=== PATIENT | female | born 1975 | race African-American/Black ===

== ENCOUNTER 2019-01-10 12:46 | Inpatient (IN) | payer BC ==
[~2019-01-10] VITALS: Ht 165.1 cm; Wt 103.0 kg
[2019-01-10] MEDS ORDERED: ASPIRIN CHEWABLE 81 MG TABLET. PO ONE (13:15)
[2019-01-10] MEDS ORDERED: LABETALOL 20 MG/4 ML DISP.SYRIN. IVP ONE ×2 (13:15→14:30)
--- NOTE | 2019-01-10 13:16 | EKG ---
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
[2019-01-10 13:23] LABS: BASO # 0.1 x10^3/uL (0.0-0.2); BASO % 2 % (0-3); EOS # 0.1 x10^3/uL (0.0-0.7); EOS % 2 % (0-3); HEMOGLOBIN 12.1 g/dL (12.0-15.5); LYMPH # 2.5 x10^3/uL (1.0-4.8); LYMPH % 44 % (24-48); MEAN CORPUSCULAR HEMOGLOBIN 29 pg (25-35); MEAN CORPUSCULAR HGB CONC 34 g/dL (31-37); MEAN CORPUSCULAR VOLUME 88 fL (79-100); MONO # 0.4 x10^3/uL (0.0-1.1); MONO % 7 % (0-9); NEUT # 2.6 x10^3uL (1.8-7.7); NEUT % 46 % (31-73); PLATELET COUNT 304 x10^3/uL (140-400); RED BLOOD COUNT 4.11 x10^6/uL (3.50-5.40); RED CELL DISTRIBUTION WIDTH 12.9 % (11.5-14.5); WHITE BLOOD COUNT 5.7 x10^3/uL (4.0-11.0)
[2019-01-10 13:35] LABS: CREATININE 0.7 mg/dL (0.6-1.0); POTASSIUM 3.9 mmol/L (3.5-5.1)
[2019-01-10 13:40] LABS: PROTHROMBIN TIME PATIENT 12.3 SEC (11.7-14.0)
[2019-01-10 13:43] LABS: ALBUMIN 3.8 g/dL (3.4-5.0); ALBUMIN/GLOBULIN RATIO 0.9 (1.0-1.7); MAGNESIUM 1.7 mg/dL (1.8-2.4); TOTAL BILIRUBIN 0.3 mg/dL (0.2-1.0); TOTAL PROTEIN 8.2 g/dL (6.4-8.2)
--- NOTE | 2019-01-10 13:59 | RAD ---
Portable chest, 01/10/2019: HISTORY: Chest pain The heart size and pulmonary vascularity are normal. No pulmonary infiltrate is seen. There is no evidence of pleural fluid. IMPRESSION: No acute cardiopulmonary abnormality is detected. Electronically signed by: Romeo Johnson MD (01/10/2019 1:56 PM) [facility]
--- NOTE | 2019-01-10 14:06 | PHYS DOC ---
Past Medical History Past Medical History: Diabetes-Type II, Hypertension Past Surgical History: Alcohol Use: Occasionally Drug Use: None Adult General Chief Complaint Chief Complaint: CHEST PAIN HPI HPI Patient is a 43 year old female who presents with complaining of chest pain. Review of Systems Review of Systems Constitutional: Denies fever or chills [] Eyes: Denies change in visual acuity, redness, or eye pain [] HENT: Denies nasal congestion or sore throat [] Respiratory: Denies cough or shortness of breath [] Cardiovascular: No additional information not addressed in HPI [] GI: Denies abdominal pain, nausea, vomiting, bloody stools or diarrhea [] : Denies dysuria or hematuria [] Musculoskeletal: Denies back pain or joint pain [] Integument: Denies rash or skin lesions [] Neurologic: Denies headache, focal weakness or sensory changes [] Endocrine: Denies polyuria or polydipsia [] All other systems were reviewed and found to be within normal limits, except as documented in this note. Current Medications Current Medications Current Medications Medications (Trade) Dose Ordered Sig/Marie Start Time Stop Time Status Last Admin Dose Admin Aspirin (Children'S Aspirin) 162 mg 1X ONCE 01/10/19 13:15 01/10/19 13:16 DC 01/10/19 13:31 162 MG Labetalol HCl (Normodyne Iv Push) 10 mg 1X ONCE 01/10/19 13:15 01/10/19 13:16 DC 01/10/19 13:33 10 MG Allergies Allergies Allergies Coded Allergies Type Severity Reaction Last Updated Verified lisinopril Allergy Severe SWELLING/HIVES 01/10/19 Yes Physical Exam Physical Exam Constitutional: Well developed, well nourished, no acute distress, non-toxic appearance. [] HENT: Normocephalic, atraumatic, bilateral external ears normal, oropharynx moist, no oral exudates, nose normal. [] Eyes: PERRLA, EOMI, conjunctiva normal, no discharge. [] Neck: Normal range of motion, no tenderness, supple, no stridor. [] Cardiovascular:Heart rate regular rhythm, no murmur [] Lungs & Thorax: Bilateral breath sounds clear to auscultation [] Abdomen: Bowel sounds normal, soft, no tenderness, no masses, no pulsatile masses. [] Skin: Warm, dry, no erythema, no rash. [] Back: No tenderness, no CVA tenderness. [] Extremities: No tenderness, no cyanosis, no clubbing, ROM intact, no edema. [] Neurologic: Alert and oriented X 3, normal motor function, normal sensory function, no focal deficits noted. [] Psychologic: Affect normal, judgement normal, mood normal. [] Current Patient Data Vital Signs Vital Signs Date Time Temp Pulse Resp B/P (MAP) Pulse Ox O2 Delivery O2 Flow Rate FiO2 01/10/19 13:55 86 18 237/124 (161) 98 Room Air 01/10/19 13:10 98.1 98.1 Lab Values Laboratory Tests Test 01/10/19 13:05 01/10/19 13:39 White Blood Count 5.7 x10^3/uL (4.0-11.0) Red Blood Count 4.11 x10^6/uL (3.50-5.40) Hemoglobin 12.1 g/dL (12.0-15.5) Hematocrit 36.0 % (36.0-47.0) Mean Corpuscular Volume 88 fL (79-100) Mean Corpuscular Hemoglobin 29 pg (25-35) Mean Corpuscular Hemoglobin Concent 34 g/dL (31-37) Red Cell Distribution Width 12.9 % (11.5-14.5) Platelet Count 304 x10^3/uL (140-400) Neutrophils (%) (Auto) 46 % (31-73) Lymphocytes (%) (Auto) 44 % (24-48) Monocytes (%) (Auto) 7 % (0-9) Eosinophils (%) (Auto) 2 % (0-3) Basophils (%) (Auto) 2 % (0-3) Neutrophils # (Auto) 2.6 x10^3uL (1.8-7.7) Lymphocytes # (Auto) 2.5 x10^3/uL (1.0-4.8) Monocytes # (Auto) 0.4 x10^3/uL (0.0-1.1) Eosinophils # (Auto) 0.1 x10^3/uL (0.0-0.7) Basophils # (Auto) 0.1 x10^3/uL (0.0-0.2) Prothrombin Time 12.3 SEC (11.7-14.0) Prothrombin Time INR 0.9 (0.8-1.1) Sodium Level 138 mmol/L (136-145) Potassium Level 3.9 mmol/L (3.5-5.1) Chloride Level 101 mmol/L (98-107) Carbon Dioxide Level 30 mmol/L (21-32) Anion Gap 7 (6-14) Blood Urea Nitrogen 14 mg/dL (7-20) Creatinine 0.7 mg/dL (0.6-1.0) Estimated GFR (Cockcroft-Gault) 110.0 BUN/Creatinine Ratio 20 (6-20) Glucose Level 299 mg/dL (70-99) H Calcium Level 10.0 mg/dL (8.5-10.1) Magnesium Level 1.7 mg/dL (1.8-2.4) L Total Bilirubin 0.3 mg/dL (0.2-1.0) Aspartate Amino Transferase (AST) 11 U/L (15-37) L Alanine Aminotransferase (ALT) 13 U/L (14-59) L Alkaline Phosphatase 63 U/L (46-116) Creatine Kinase 125 U/L (26-192) Troponin I Quantitative < 0.017 ng/mL (0.000-0.055) MQ-Yuz-P-Type Natriuretic Peptide 119 pg/mL (0-124) Total Protein 8.2 g/dL (6.4-8.2) Albumin 3.8 g/dL (3.4-5.0) Albumin/Globulin Ratio 0.9 (1.0-1.7) L Lipase 158 U/L (73-393) POC Urine HCG, Qualitative Hcg negative (Negative) Laboratory Tests 01/10/19 13:05 Laboratory Tests 01/10/19 13:05 EKG EKG EKG interpreted by me. EKG at 1254 showed normal sinus rhythm at rate of 85, left atrial abnormalities, no acute ST and T-wave abnormalities. Radiology/Procedures Radiology/Procedures [facility] [address] [place] [address] IMAGING REPORT Signed PATIENT: BALDOMERO CABA ACCOUNT: [id number] : 1975 LOCATION: ER AGE: 43 SEX: F EXAM STATUS: REG ER ORD. PHYSICIAN: CLAUDIA WONG MD REASON: chest pain PROCEDURE: PORTABLE CHEST 1V Portable chest, 01/10/2019: HISTORY: Chest pain The heart size and pulmonary vascularity are normal. No pulmonary infiltrate is seen. There is no evidence of pleural fluid. IMPRESSION: No acute cardiopulmonary abnormality is detected. Electronically signed by: Romeo Johnson MD (01/10/2019 1:56 PM) [facility] DICTATED and SIGNED BY: ROMEO JOHNSON MD DATE: 01/10/19 5080 Course & Med Decision Making Course & Med Decision Making Pertinent Labs and Imaging studies reviewed. (See chart for details) Evaluation of patient in ER showed 43-year-old female patient with history of hypertension and diabetes mellitus presented to ER with elevation of blood pressure and intermittent episodes of chest pain. Patient had blood pressure of 229/126 at arrival to ER and heart rate of 92 and treated with labetalol with increasing blood pressure to 237/120 with resolving chest pain. Patient had blood sugar of 299 with unremarkable cardiac enzymes and BNP. Plan to admit patient with diagnosis of hypertensive emergency and uncontrolled diabetes mellitus. Patient requiring admission for further evaluation and treatment. Discussed with Dr. Mercado who is in agreement with admission. Discussed findings and plan with patient and family, who acknowledge understanding and agreement. Dragon Disclaimer Dragon Disclaimer This electronic medical record was generated, in whole or in part, using a voice recognition dictation system. Departure Departure Impression: Primary Impression: Hypertensive urgency Additional Impressions: Hyperglycemia Uncontrolled diabetes mellitus Noncompliance Disposition: ADMITTED INPATIENT (at 1450) Admitting Physician: ESPERANZA (Dr Mercado accepted admission at 1449) Condition: IMPROVED Referrals: JAN SHIN MD (PCP) Problem Qualifiers Additional Impressions: Uncontrolled diabetes mellitus Diabetes mellitus type: type 2 Glycemic state: with hyperglycemia Qualified Codes: E11.65 - Type 2 diabetes mellitus with hyperglycemia CLAUDIA WONG MD Jan 10, 2019 14:06
[2019-01-10] MEDS ORDERED: DEXTROSE 50% 25 GM / 50ML DISP.SYRIN. IV PRN (15:15)
[2019-01-10 15:22] VITALS: BP 178/98
[2019-01-10] MEDS ORDERED: MAGNESIUM SULFATE 2GM 50 ML IV ONE (15:30)
--- NOTE | 2019-01-10 15:52 | PDOC1 ---
History and Physical Date of Admission Date of Admission DATE: 01/10/19 TIME: 15:11 Identification/Chief Complaint Chief Complaint Chest pain Source Source: Chart review, Patient History of Present Illness History of Present Illness Ms Rhodes is a 43-year-old F w/ PMHx atrial flutter, hypertension and diabetes mellitus presented to ED with elevation of blood pressure and intermittent episodes of chest pain. She was at work at when she experienced some chest tightness on the left side of her chest, so came to the ED. Notes pain 3/10, non-radiating, no nausea or vomiting. Patient had blood pressure of 229/126 at arrival to ER and heart rate of 92 and treated with labetalol with increasing blood pressure to 237/120 with resolving chest pain. Patient had blood sugar of 299 with unremarkable cardiac enzymes and BNP. She stopped taking metoprolol, losartan, asa, and metformin 1 month ago because she forgot to refill. Past Medical History Cardiovascular: HTN, Other (Atrial flutter) Pulmonary: No pertinent hx GI: No pertinent hx Heme/Onc: No pertinent hx Hepatobiliary: No pertinent hx Psych: No pertinent hx Rheumatologic: No pertinent hx Infectious disease: No pertinent hx ENT: No pertinent hx Renal/: No pertinent hx Endocrine: Diabetes Dermatology: No pertinent hx Past Surgical History Past Surgical History: Family History Family History: Coronary Artery Disease, Diabetes (Mother) Social History Smoke: No ALCOHOL: none Drugs: None Current Problem List Problem List Problems Medical Problems: (1) Hyperglycemia Status: Acute (2) Hypertensive urgency Status: Acute (3) Noncompliance Status: Acute (4) Uncontrolled diabetes mellitus Status: Acute Current Medications Current Medications Current Medications Aspirin (Children'S Aspirin) 162 mg 1X ONCE PO Last administered on 01/10/19at 13:31; Start 01/10/19 at 13:15; Stop 01/10/19 at 13:16; Status DC Labetalol HCl (Normodyne Iv Push) 10 mg 1X ONCE IVP Last administered on 01/10/19at 13:33; Start 01/10/19 at 13:15; Stop 01/10/19 at 13:16; Status DC Labetalol HCl (Normodyne Iv Push) 10 mg 1X ONCE IVP Last administered on 01/10/19at 14:39; Start 01/10/19 at 14:30; Stop 01/10/19 at 14:31; Status DC Allergies Allergies: Coded Allergies: lisinopril (Verified Allergy, Severe, SWELLING/HIVES, 01/10/19) ROS General: YES: Fatigue, Malaise; No: Chills, Night Sweats, Appetite, Other PSYCHOLOGICAL ROS: YES: Anxiety; No: Behavioral Disorder, Concentration difficultie, Decreased libido, Depression, Disorientation, Hallucinations, Hostility, Irritablity, Memory difficulties, Mood Swings, Obsessive thoughts, Physical abuse, Sexual abuse, Sleep disturbances, Suicidal ideation, Other Eyes: No Blurry vision, No Decreased vision, No Double vision, No Dry eyes, No Excessive tearing, No Eye Pain, No Itchy Eyes, No Loss of vision, No Photophobia, No Scotomata, No Uses contacts, No Uses glasses, No Other HEENT: No: Heacaches, Visual Changes, Hearing change, Nasal congestion, Nasal discharge, Oral lesions, Sinus pain, Sore Throat, Epistaxis, Sneezing, Snoring, Tinnitus, Vertigo, Vocal changes, Other ALLERGY AND IMMUNOLOGY: No: Hives, Insect Bite Sensitivity, Itchy/Watery Eyes, Nasal Congestion, Post Nasal Drip, Seasonal Allergies, Other Hematological and Lymphatic: No: Bleeding Problems, Blood Clots, Blood Transfusions, Brusing, Night Sweats, Pallor, Swollen Lymph Nodes, Other ENDOCRINE: No: Breast Changes, Galactorrhea, Hair Pattern Changes, Hot Flashes, Malaise/lethargy, Mood Swings, Palpitations, Polydipsia/polyuria, Skin Changes, Temperature Intolerance, Unexpected Weight Changes, Other Breast: No New/Changing Breast Lumps, No Nipple changes, No Nipple discharge, No Other Respiratory: No: Cough, Hemoptysis, Orthopnea, Pleuritic Pain, Shortness of breath, SOB with excertion, Sputum Changes, Stridor, Tachypnea, Wheezing, Other Cardiovascular: yes Chest Pain; No Palpitations, No Orthopnea, No Paroxysmal Noc. Dyspnea, No Edema, No Lt Headedness, No Other Gastrointestinal: No Nausea, No Vomiting, No Abdominal Pain, No Diarrhea, No Constipation, No Melena, No Hematochezia, No Other Genitourinary: No Dysuria, No Frequency, No Incontinence, No Hematuria, No Retention, No Discharge, No Urgency, No Pain, No Flank Pain, No Other, No , No , No , No , No , No , No Musculoskeletal: No Gait Disturbance, No Joint Pain, No Joint Stiffness, No Joint Swelling, No Muscle Pain, No Muscular Weakness, No Pain In:, No Swelling In:, No Other Neurological: No Behavorial Changes, No Bowel/Bladder ControlChng, No Confusion, No Dizziness, No Gait Disturbance, No Headaches, No Impaired Coord/balance, No Memory Loss, No Numbness/Tingling, No Seizures, No Speech Problems, No Tremors, No Visual Changes, No Weakness, No Other Skin: No Dry Skin, No Eczema, No Hair Changes, No Lumps, No Mole Changes, No Mottling, No Nail Changes, No Pruritus, No Rash, No Skin Lesion Changes, No Other, No Acne Physical Exam General: Alert, Oriented X3, Cooperative, No acute distress HEENT: Atraumatic, PERRLA, EOMI, Mucous membr. moist/pink Lungs: Clear to auscultation, Normal air movement Heart: S1S2, RRR Abdomen: Normal bowel sounds, Soft, No tenderness, No hepatosplenomegaly, No masses Rectal Exam: not examined Extremities: No clubbing, No cyanosis, No edema, Normal pulses, No tenderness/swelling Skin: No rashes, No breakdown, No significant lesion Neuro: Normal gait, Normal speech, Strength at 5/5 X4 ext, Normal tone, Sensation intact, Cranial nerves 3-12 NL, Reflexes 2+ Psych/Mental Status: Mental status NL, Mood NL Vitals Vitals Vital Signs Date Time Temp Pulse Resp B/P (MAP) Pulse Ox O2 Delivery O2 Flow Rate FiO2 01/10/19 14:48 84 18 222/112 (148) 98 Room Air 01/10/19 13:10 98.1 98.1 Labs Labs Laboratory Tests Test 01/10/19 13:05 01/10/19 13:39 White Blood Count 5.7 x10^3/uL (4.0-11.0) Red Blood Count 4.11 x10^6/uL (3.50-5.40) Hemoglobin 12.1 g/dL (12.0-15.5) Hematocrit 36.0 % (36.0-47.0) Mean Corpuscular Volume 88 fL (79-100) Mean Corpuscular Hemoglobin 29 pg (25-35) Mean Corpuscular Hemoglobin Concent 34 g/dL (31-37) Red Cell Distribution Width 12.9 % (11.5-14.5) Platelet Count 304 x10^3/uL (140-400) Neutrophils (%) (Auto) 46 % (31-73) Lymphocytes (%) (Auto) 44 % (24-48) Monocytes (%) (Auto) 7 % (0-9) Eosinophils (%) (Auto) 2 % (0-3) Basophils (%) (Auto) 2 % (0-3) Neutrophils # (Auto) 2.6 x10^3uL (1.8-7.7) Lymphocytes # (Auto) 2.5 x10^3/uL (1.0-4.8) Monocytes # (Auto) 0.4 x10^3/uL (0.0-1.1) Eosinophils # (Auto) 0.1 x10^3/uL (0.0-0.7) Basophils # (Auto) 0.1 x10^3/uL (0.0-0.2) Prothrombin Time 12.3 SEC (11.7-14.0) Prothromb Time International Ratio 0.9 (0.8-1.1) Sodium Level 138 mmol/L (136-145) Potassium Level 3.9 mmol/L (3.5-5.1) Chloride Level 101 mmol/L (98-107) Carbon Dioxide Level 30 mmol/L (21-32) Anion Gap 7 (6-14) Blood Urea Nitrogen 14 mg/dL (7-20) Creatinine 0.7 mg/dL (0.6-1.0) Estimated GFR (Cockcroft-Gault) 110.0 BUN/Creatinine Ratio 20 (6-20) Glucose Level 299 mg/dL (70-99) Calcium Level 10.0 mg/dL (8.5-10.1) Magnesium Level 1.7 mg/dL (1.8-2.4) Total Bilirubin 0.3 mg/dL (0.2-1.0) Aspartate Amino Transf (AST/SGOT) 11 U/L (15-37) Alanine Aminotransferase (ALT/SGPT) 13 U/L (14-59) Alkaline Phosphatase 63 U/L (46-116) Creatine Kinase 125 U/L (26-192) Troponin I Quantitative < 0.017 ng/mL (0.000-0.055) UN-Nwp-[id number]-Type Natriuretic Peptide 119 pg/mL (0-124) Total Protein 8.2 g/dL (6.4-8.2) Albumin 3.8 g/dL (3.4-5.0) Albumin/Globulin Ratio 0.9 (1.0-1.7) Lipase 158 U/L (73-393) Bedside Urine HCG, Qualitative Hcg negative (Negative) Laboratory Tests Test 01/10/19 13:05 01/10/19 13:39 White Blood Count 5.7 x10^3/uL (4.0-11.0) Red Blood Count 4.11 x10^6/uL (3.50-5.40) Hemoglobin 12.1 g/dL (12.0-15.5) Hematocrit 36.0 % (36.0-47.0) Mean Corpuscular Volume 88 fL (79-100) Mean Corpuscular Hemoglobin 29 pg (25-35) Mean Corpuscular Hemoglobin Concent 34 g/dL (31-37) Red Cell Distribution Width 12.9 % (11.5-14.5) Platelet Count 304 x10^3/uL (140-400) Neutrophils (%) (Auto) 46 % (31-73) Lymphocytes (%) (Auto) 44 % (24-48) Monocytes (%) (Auto) 7 % (0-9) Eosinophils (%) (Auto) 2 % (0-3) Basophils (%) (Auto) 2 % (0-3) Neutrophils # (Auto) 2.6 x10^3uL (1.8-7.7) Lymphocytes # (Auto) 2.5 x10^3/uL (1.0-4.8) Monocytes # (Auto) 0.4 x10^3/uL (0.0-1.1) Eosinophils # (Auto) 0.1 x10^3/uL (0.0-0.7) Basophils # (Auto) 0.1 x10^3/uL (0.0-0.2) Prothrombin Time 12.3 SEC (11.7-14.0) Prothromb Time International Ratio 0.9 (0.8-1.1) Sodium Level 138 mmol/L (136-145) Potassium Level 3.9 mmol/L (3.5-5.1) Chloride Level 101 mmol/L (98-107) Carbon Dioxide Level 30 mmol/L (21-32) Anion Gap 7 (6-14) Blood Urea Nitrogen 14 mg/dL (7-20) Creatinine 0.7 mg/dL (0.6-1.0) Estimated GFR (Cockcroft-Gault) 110.0 BUN/Creatinine Ratio 20 (6-20) Glucose Level 299 mg/dL (70-99) Calcium Level 10.0 mg/dL (8.5-10.1) Magnesium Level 1.7 mg/dL (1.8-2.4) Total Bilirubin 0.3 mg/dL (0.2-1.0) Aspartate Amino Transf (AST/SGOT) 11 U/L (15-37) Alanine Aminotransferase (ALT/SGPT) 13 U/L (14-59) Alkaline Phosphatase 63 U/L (46-116) Creatine Kinase 125 U/L (26-192) Troponin I Quantitative < 0.017 ng/mL (0.000-0.055) OY-Ajg-G-Type Natriuretic Peptide 119 pg/mL (0-124) Total Protein 8.2 g/dL (6.4-8.2) Albumin 3.8 g/dL (3.4-5.0) Albumin/Globulin Ratio 0.9 (1.0-1.7) Lipase 158 U/L (73-393) Bedside Urine HCG, Qualitative Hcg negative (Negative) Images Images CXR - No acute cardiopulmonary abnormality is detected. VTE Prophylaxis Ordered VTE Prophylaxis Devices: Yes VTE Pharmacological Prophylaxi: No Assessment/Plan Assessment/Plan A/P: Chest pain - atypical, likely 2/2 HTN urgency, will trend troponins. BP management. Needs outpatient stress testing. She does not wish for significant cardiac w/u. understands she stopped taking meds 30 days ago. HTN urgency - Came down with 1 dose labetalol, likely in some BB withdrawal. will restart her home metoprolol and losartan DM2 - restart metformin 500mg BID, sliding scale in addition. will add GLP1 and SGLT2, check A1c and lipids Hypomagnesemia - replace 2g Atrial flutter - currently sinus, will cont BB and asa for low [id number] of 1 FEN - ADA diet PPX - SCDs FULL CODE Inpatient for HTN urgency RIFFEL,CHRISTOPHER S MD Jan 10, 2019 15:52
[2019-01-10] MEDS: metFORMIN 500 MG TABLET PO SCH (17:06)
[2019-01-10] MEDS: LOSARTAN POTASSIUM 50 MG TABLET. PO SCH (17:07)
[2019-01-10] MEDS: INSULIN LISPRO 300 UNITS/3 ML INSULN.PEN. SQ SCH (17:10)
[2019-01-10] MEDS ORDERED: LABETALOL 20 MG/4 ML DISP.SYRIN. IVP PRN (18:45)
[2019-01-10 19:40] VITALS: BP 187/79
[2019-01-10] MEDS ORDERED: ATORVASTATIN CALCIUM 20 MG TABLET PO SCH (21:00)
[2019-01-10] MEDS ORDERED: INSULIN GLARGINE 300 UNITS/3 ML INSULN.PEN. SQ SCH (21:15)
[2019-01-10] MEDS: METOPROLOL TART IMMED RELEASE 25 MG TABLET. PO SCH (21:21)
[2019-01-10 23:34] VITALS: BP 175/88
[2019-01-11 03:30] VITALS: BP 153/77
[2019-01-11 05:34] LABS: CALCIUM 8.9 mg/dL (8.5-10.1); CHOLESTEROL/HDL RATIO 2.6; CREATININE 0.6 mg/dL (0.6-1.0); GFR 131.4; POTASSIUM 3.9 mmol/L (3.5-5.1)
[2019-01-11 07:00] VITALS: BP 148/71
[2019-01-11] MEDS ORDERED: ASPIRIN ENTERIC COATED 81 MG TABLET.DR. PO SCH (08:00)
--- NOTE | 2019-01-11 08:46 | PDOC ---
PROGRESS NOTES Chief Complaint Chief Complaint A/P: Chest pain - atypical, likely 2/2 HTN urgency, will trend troponins. BP management. Needs outpatient stress testing. She does not wish for significant cardiac w/u. understands she stopped taking meds 30 days ago. HTN urgency - Came down with 1 dose labetalol, likely in some BB withdrawal. will restart her home metoprolol and losartan DM2 - restart metformin 500mg BID, sliding scale in addition. will add GLP1 and SGLT2, check A1c and lipids Hypomagnesemia - replace 2g Atrial flutter - currently sinus, will cont BB and asa for low [id number] of 1 FEN - ADA diet PPX - SCDs FULL CODE Inpatient for HTN urgency History of Present Illness History of Present Illness Ms Rhodes is a 43-year-old F w/ PMHx atrial flutter, hypertension and diabetes mellitus presented to ED with elevation of blood pressure and intermittent episodes of chest pain. She was at work at [employer] when she experienced some chest tightness on the left side of her chest, so came to the ED. Notes pain 3/10, non-radiating, no nausea or vomiting. Patient had blood pressure of 229/126 at arrival to ER and heart rate of 92 and treated with labetalol with increasing blood pressure to 237/120 with resolving chest pain. She stopped taking metoprolol, losartan, asa, and metformin 1 month ago because she forgot to refill. Patient had blood sugar of 299 with unremarkable cardiac enzymes and BNP. No abnormalities on EKG or cardiac enzymes. BP normalized over the course of 2 days with reinitiation of metoprolol and losartan, added ASA, statin for LDL > 70mg/dL and diabetic testing supplies. She is resistant to insulin use, given scripts for metformin and jardiance. Vitals Vitals Vital Signs Date Time Temp Pulse Resp B/P (MAP) Pulse Ox O2 Delivery O2 Flow Rate FiO2 01/11/19 07:00 98.3 74 18 148/71 (96) 98 Room Air 98.3 Physical Exam General: Alert, Oriented X3, Cooperative, No acute distress Abdomen: Normal bowel sounds, Soft, No tenderness, No hepatosplenomegaly, No masses Extremities: No clubbing, No cyanosis, No edema, Normal pulses, No tend erness/swelling Skin: No rashes, No breakdown, No significant lesion Labs LABS Laboratory Tests Test 01/10/19 13:05 01/10/19 13:39 01/10/19 17:01 01/10/19 21:16 White Blood Count 5.7 x10^3/uL (4.0-11.0) Red Blood Count 4.11 x10^6/uL (3.50-5.40) Hemoglobin 12.1 g/dL (12.0-15.5) Hematocrit 36.0 % (36.0-47.0) Mean Corpuscular Volume 88 fL (79-100) Mean Corpuscular Hemoglobin 29 pg (25-35) Mean Corpuscular Hemoglobin Concent 34 g/dL (31-37) Red Cell Distribution Width 12.9 % (11.5-14.5) Platelet Count 304 x10^3/uL (140-400) Neutrophils (%) (Auto) 46 % (31-73) Lymphocytes (%) (Auto) 44 % (24-48) Monocytes (%) (Auto) 7 % (0-9) Eosinophils (%) (Auto) 2 % (0-3) Basophils (%) (Auto) 2 % (0-3) Neutrophils # (Auto) 2.6 x10^3uL (1.8-7.7) Lymphocytes # (Auto) 2.5 x10^3/uL (1.0-4.8) Monocytes # (Auto) 0.4 x10^3/uL (0.0-1.1) Eosinophils # (Auto) 0.1 x10^3/uL (0.0-0.7) Basophils # (Auto) 0.1 x10^3/uL (0.0-0.2) Prothrombin Time 12.3 SEC (11.7-14.0) Prothromb Time International Ratio 0.9 (0.8-1.1) Sodium Level 138 mmol/L (136-145) Potassium Level 3.9 mmol/L (3.5-5.1) Chloride Level 101 mmol/L (98-107) Carbon Dioxide Level 30 mmol/L (21-32) Anion Gap 7 (6-14) Blood Urea Nitrogen 14 mg/dL (7-20) Creatinine 0.7 mg/dL (0.6-1.0) Estimated GFR (Cockcroft-Gault) 110.0 BUN/Creatinine Ratio 20 (6-20) Glucose Level 299 mg/dL (70-99) Calcium Level 10.0 mg/dL (8.5-10.1) Magnesium Level 1.7 mg/dL (1.8-2.4) Total Bilirubin 0.3 mg/dL (0.2-1.0) Aspartate Amino Transf (AST/SGOT) 11 U/L (15-37) Alanine Aminotransferase (ALT/SGPT) 13 U/L (14-59) Alkaline Phosphatase 63 U/L (46-116) Creatine Kinase 125 U/L (26-192) Troponin I Quantitative < 0.017 ng/mL (0.000-0.055) OK-Zvc-M-Type Natriuretic Peptide 119 pg/mL (0-124) Total Protein 8.2 g/dL (6.4-8.2) Albumin 3.8 g/dL (3.4-5.0) Albumin/Globulin Ratio 0.9 (1.0-1.7) Lipase 158 U/L (73-393) Thyroid Stimulating Hormone (TSH) 0.993 uIU/mL (0.358-3.74) Bedside Urine HCG, Qualitative Hcg negative (Negative) Glucose (Fingerstick) 225 mg/dL (70-99) 306 mg/dL (70-99) Test 01/11/19 04:15 01/11/19 08:10 Sodium Level 140 mmol/L (136-145) Potassium Level 3.9 mmol/L (3.5-5.1) Chloride Level 104 mmol/L (98-107) Carbon Dioxide Level 27 mmol/L (21-32) Anion Gap 9 (6-14) Blood Urea Nitrogen 10 mg/dL (7-20) Creatinine 0.6 mg/dL (0.6-1.0) Estimated GFR (Cockcroft-Gault) 131.4 Glucose Level 239 mg/dL (70-99) Calcium Level 8.9 mg/dL (8.5-10.1) Triglycerides Level 45 mg/dL (0-150) Cholesterol Level 154 mg/dL (0-200) LDL Cholesterol, Calculated 85 mg/dL (0-100) VLDL Cholesterol, Calculated 9 mg/dL (0-40) Non-HDL Cholesterol Calculated 94 mg/dL (0-129) HDL Cholesterol 60 mg/dL (40-60) Cholesterol/HDL Ratio 2.6 Glucose (Fingerstick) 208 mg/dL (70-99) Assessment and Plan Assessmemt and Plan Problems Medical Problems: (1) Hyperglycemia Status: Acute (2) Hypertensive urgency Status: Acute (3) Noncompliance Status: Acute (4) Uncontrolled diabetes mellitus Status: Acute Comment Review of Relevant I have reviewed the following items kimberlyn (where applicable) has been applied. Labs Laboratory Tests Test 01/10/19 13:05 01/10/19 13:39 01/10/19 17:01 01/10/19 21:16 White Blood Count 5.7 x10^3/uL (4.0-11.0) Red Blood Count 4.11 x10^6/uL (3.50-5.40) Hemoglobin 12.1 g/dL (12.0-15.5) Hematocrit 36.0 % (36.0-47.0) Mean Corpuscular Volume 88 fL (79-100) Mean Corpuscular Hemoglobin 29 pg (25-35) Mean Corpuscular Hemoglobin Concent 34 g/dL (31-37) Red Cell Distribution Width 12.9 % (11.5-14.5) Platelet Count 304 x10^3/uL (140-400) Neutrophils (%) (Auto) 46 % (31-73) Lymphocytes (%) (Auto) 44 % (24-48) Monocytes (%) (Auto) 7 % (0-9) Eosinophils (%) (Auto) 2 % (0-3) Basophils (%) (Auto) 2 % (0-3) Neutrophils # (Auto) 2.6 x10^3uL (1.8-7.7) Lymphocytes # (Auto) 2.5 x10^3/uL (1.0-4.8) Monocytes # (Auto) 0.4 x10^3/uL (0.0-1.1) Eosinophils # (Auto) 0.1 x10^3/uL (0.0-0.7) Basophils # (Auto) 0.1 x10^3/uL (0.0-0.2) Prothrombin Time 12.3 SEC (11.7-14.0) Prothromb Time International Ratio 0.9 (0.8-1.1) Sodium Level 138 mmol/L (136-145) Potassium Level 3.9 mmol/L (3.5-5.1) Chloride Level 101 mmol/L (98-107) Carbon Dioxide Level 30 mmol/L (21-32) Anion Gap 7 (6-14) Blood Urea Nitrogen 14 mg/dL (7-20) Creatinine 0.7 mg/dL (0.6-1.0) Estimated GFR (Cockcroft-Gault) 110.0 BUN/Creatinine Ratio 20 (6-20) Glucose Level 299 mg/dL (70-99) Calcium Level 10.0 mg/dL (8.5-10.1) Magnesium Level 1.7 mg/dL (1.8-2.4) Total Bilirubin 0.3 mg/dL (0.2-1.0) Aspartate Amino Transf (AST/SGOT) 11 U/L (15-37) Alanine Aminotransferase (ALT/SGPT) 13 U/L (14-59) Alkaline Phosphatase 63 U/L (46-116) Creatine Kinase 125 U/L (26-192) Troponin I Quantitative < 0.017 ng/mL (0.000-0.055) GQ-Fgu-F-Type Natriuretic Peptide 119 pg/mL (0-124) Total Protein 8.2 g/dL (6.4-8.2) Albumin 3.8 g/dL (3.4-5.0) Albumin/Globulin Ratio 0.9 (1.0-1.7) Lipase 158 U/L (73-393) Thyroid Stimulating Hormone (TSH) 0.993 uIU/mL (0.358-3.74) Bedside Urine HCG, Qualitative Hcg negative (Negative) Glucose (Fingerstick) 225 mg/dL (70-99) 306 mg/dL (70-99) Test 01/11/19 04:15 01/11/19 08:10 Sodium Level 140 mmol/L (136-145) Potassium Level 3.9 mmol/L (3.5-5.1) Chloride Level 104 mmol/L (98-107) Carbon Dioxide Level 27 mmol/L (21-32) Anion Gap 9 (6-14) Blood Urea Nitrogen 10 mg/dL (7-20) Creatinine 0.6 mg/dL (0.6-1.0) Estimated GFR (Cockcroft-Gault) 131.4 Glucose Level 239 mg/dL (70-99) Calcium Level 8.9 mg/dL (8.5-10.1) Triglycerides Level 45 mg/dL (0-150) Cholesterol Level 154 mg/dL (0-200) LDL Cholesterol, Calculated 85 mg/dL (0-100) VLDL Cholesterol, Calculated 9 mg/dL (0-40) Non-HDL Cholesterol Calculated 94 mg/dL (0-129) HDL Cholesterol 60 mg/dL (40-60) Cholesterol/HDL Ratio 2.6 Glucose (Fingerstick) 208 mg/dL (70-99) Laboratory Tests Test 01/10/19 13:05 01/10/19 13:39 01/10/19 17:01 01/10/19 21:16 White Blood Count 5.7 x10^3/uL (4.0-11.0) Red Blood Count 4.11 x10^6/uL (3.50-5.40) Hemoglobin 12.1 g/dL (12.0-15.5) Hematocrit 36.0 % (36.0-47.0) Mean Corpuscular Volume 88 fL (79-100) Mean Corpuscular Hemoglobin 29 pg (25-35) Mean Corpuscular Hemoglobin Concent 34 g/dL (31-37) Red Cell Distribution Width 12.9 % (11.5-14.5) Platelet Count 304 x10^3/uL (140-400) Neutrophils (%) (Auto) 46 % (31-73) Lymphocytes (%) (Auto) 44 % (24-48) Monocytes (%) (Auto) 7 % (0-9) Eosinophils (%) (Auto) 2 % (0-3) Basophils (%) (Auto) 2 % (0-3) Neutrophils # (Auto) 2.6 x10^3uL (1.8-7.7) Lymphocytes # (Auto) 2.5 x10^3/uL (1.0-4.8) Monocytes # (Auto) 0.4 x10^3/uL (0.0-1.1) Eosinophils # (Auto) 0.1 x10^3/uL (0.0-0.7) Basophils # (Auto) 0.1 x10^3/uL (0.0-0.2) Prothrombin Time 12.3 SEC (11.7-14.0) Prothromb Time International Ratio 0.9 (0.8-1.1) Sodium Level 138 mmol/L (136-145) Potassium Level 3.9 mmol/L (3.5-5.1) Chloride Level 101 mmol/L (98-107) Carbon Dioxide Level 30 mmol/L (21-32) Anion Gap 7 (6-14) Blood Urea Nitrogen 14 mg/dL (7-20) Creatinine 0.7 mg/dL (0.6-1.0) Estimated GFR (Cockcroft-Gault) 110.0 BUN/Creatinine Ratio 20 (6-20) Glucose Level 299 mg/dL (70-99) Calcium Level 10.0 mg/dL (8.5-10.1) Magnesium Level 1.7 mg/dL (1.8-2.4) Total Bilirubin 0.3 mg/dL (0.2-1.0) Aspartate Amino Transf (AST/SGOT) 11 U/L (15-37) Alanine Aminotransferase (ALT/SGPT) 13 U/L (14-59) Alkaline Phosphatase 63 U/L (46-116) Creatine Kinase 125 U/L (26-192) Troponin I Quantitative < 0.017 ng/mL (0.000-0.055) IH-Hcm-U-Type Natriuretic Peptide 119 pg/mL (0-124) Total Protein 8.2 g/dL (6.4-8.2) Albumin 3.8 g/dL (3.4-5.0) Albumin/Globulin Ratio 0.9 (1.0-1.7) Lipase 158 U/L (73-393) Thyroid Stimulating Hormone (TSH) 0.993 uIU/mL (0.358-3.74) Bedside Urine HCG, Qualitative Hcg negative (Negative) Glucose (Fingerstick) 225 mg/dL (70-99) 306 mg/dL (70-99) Test 01/11/19 04:15 01/11/19 08:10 Sodium Level 140 mmol/L (136-145) Potassium Level 3.9 mmol/L (3.5-5.1) Chloride Level 104 mmol/L (98-107) Carbon Dioxide Level 27 mmol/L (21-32) Anion Gap 9 (6-14) Blood Urea Nitrogen 10 mg/dL (7-20) Creatinine 0.6 mg/dL (0.6-1.0) Estimated GFR (Cockcroft-Gault) 131.4 Glucose Level 239 mg/dL (70-99) Calcium Level 8.9 mg/dL (8.5-10.1) Triglycerides Level 45 mg/dL (0-150) Cholesterol Level 154 mg/dL (0-200) LDL Cholesterol, Calculated 85 mg/dL (0-100) VLDL Cholesterol, Calculated 9 mg/dL (0-40) Non-HDL Cholesterol Calculated 94 mg/dL (0-129) HDL Cholesterol 60 mg/dL (40-60) Cholesterol/HDL Ratio 2.6 Glucose (Fingerstick) 208 mg/dL (70-99) Medications Current Medications Aspirin (Children'S Aspirin) 162 mg 1X ONCE PO Last administered on 01/10/19at 13:31; Start 01/10/19 at 13:15; Stop 01/10/19 at 13:16; Status DC Labetalol HCl (Normodyne Iv Push) 10 mg 1X ONCE IVP Last administered on 01/10/19at 13:33; Start 01/10/19 at 13:15; Stop 01/10/19 at 13:16; Status DC Labetalol HCl (Normodyne Iv Push) 10 mg 1X ONCE IVP Last administered on 01/10/19at 14:39; Start 01/10/19 at 14:30; Stop 01/10/19 at 14:31; Status DC Magnesium Sulfate 50 ml @ 25 mls/hr 1X ONCE IV Last administered on 01/10/19at 15:53; Start 01/10/19 at 15:30; Stop 01/10/19 at 17:29; Status DC Insulin Human Lispro (HumaLOG) 0-7 UNITS TIDWMEALS SQ Last administered on 01/10/19at 17:10; Start 01/10/19 at 17:00 Dextrose (Dextrose 50%-Water Syringe) 12.5 gm PRN Q15MIN PRN IV SEE COMMENTS; Start 01/10/19 at 15:15 Metformin HCl (Glucophage) 500 mg BIDWMEALS PO Last administered on 01/10/19at 17:06; Start 01/10/19 at 17:00 Metoprolol Tartrate (Lopressor) 25 mg BID PO Last administered on 01/10/19at 21:21; Start 01/10/19 at 21:00 Losartan Potassium (Cozaar) 50 mg DAILY PO Last administered on 01/10/19at 17:07; Start 01/10/19 at 16:00 Aspirin (Ecotrin) 81 mg DAILYWBKFT PO ; Start 01/11/19 at 08:00 Atorvastatin Calcium (Lipitor) 20 mg QHS PO Last administered on 01/10/19at 21:21; Start 01/10/19 at 21:00 Labetalol HCl (Normodyne Iv Push) 10 mg PRN Q4HRS PRN IVP HYPERTENSION; Start 01/10/19 at 18:45 Insulin Glargine (Lantus) 5 units QHS SQ Last administered on 01/10/19at 21:23; Start 01/10/19 at 21:15 Vitals/I & O Vital Sign - Last 24 Hours 01/10/19 01/10/19 01/10/19 01/10/19 13:10 13:33 13:55 14:25 Temp 98.1 98.1 Pulse 91 102 86 82 Resp B/P (MAP) 229/126 (160) 229/126 237/124 (161) 242/135 (170) Pulse Ox 98 98 98 O2 Delivery Room Air Room Air Room Air 01/10/19 01/10/19 01/10/19 01/10/19 14:39 14:45 14:48 15:22 Temp 98.4 98.4 Pulse 84 82 84 82 Resp 20 B/P (MAP) 242/135 224/126 (158) 222/112 (148) 178/98 (124) Pulse Ox 98 98 O2 Delivery Room Air Room Air Room Air 01/10/19 01/10/19 01/10/19 01/10/19 17:07 19:40 20:22 21:21 Temp 97.8 97.8 Pulse 80 97 97 Resp 22 B/P (MAP) 184/93 187/79 (115) 187/79 Pulse Ox 95 O2 Delivery Room Air Room Air 01/10/19 01/11/19 01/11/19 23:34 03:30 07:00 Temp 98.5 97.6 98.3 98.5 97.6 98.3 Pulse 83 84 74 Resp 18 B/P (MAP) 175/88 (117) 153/77 (102) 148/71 (96) Pulse Ox 98 98 98 O2 Delivery Room Air Room Air Room Air Intake and Output 01/10/19 01/10/19 01/11/19 15:00 23:00 07:00 Intake Total 290 ml 300 ml Output Total 600 ml Balance 290 ml -300 ml VALERIE LEONARD MD Jan 11, 2019 08:46
[2019-01-11] MEDS: METOPROLOL TART IMMED RELEASE 25 MG TABLET. PO SCH (08:54)
[2019-01-11] MEDS: metFORMIN 500 MG TABLET PO SCH (08:54)
[2019-01-11] MEDS: LOSARTAN POTASSIUM 50 MG TABLET. PO SCH (08:54)
[2019-01-11] MEDS: INSULIN LISPRO 300 UNITS/3 ML INSULN.PEN. SQ SCH ×2 (09:01→12:00)
[2019-01-11 11:00] VITALS: BP 156/72
[2019-01-11] MEDS ORDERED: LOSA-73 PO (11:20)
[2019-01-11] MEDS ORDERED: METF500T PO (11:20)
[2019-01-11] MEDS ORDERED: ASPI-612 PO (11:20)
[2019-01-11] MEDS ORDERED: METO25TA4 PO (11:20)
[2019-01-11] MEDS ORDERED: EMPA10TA PO (11:20)
[2019-01-11] MEDS ORDERED: ATOR20TA58 PO (11:20)
--- NOTE | 2019-01-11 11:26 | PDOC3 ---
Discharge Summary Visit Information Date of Admission: Jan 10, 2019 Date of Discharge: Jan 11, 2019 Admitting Diagnosis: Hypertensive urgency Final Diagnosis Problems Medical Problems: (1) Hyperglycemia Status: Acute (2) Hypertensive urgency Status: Acute (3) Noncompliance Status: Acute (4) Uncontrolled diabetes mellitus Status: Acute Brief Hospital Course Allergies Allergies Coded Allergies Type Severity Reaction Last Updated Verified lisinopril Allergy Severe SWELLING/HIVES 01/10/19 Yes Vital Signs Vital Signs Date Time Temp Pulse Resp B/P (MAP) Pulse Ox O2 Delivery O2 Flow Rate FiO2 01/11/19 08:54 74 148/71 01/11/19 07:00 98.3 18 98 Room Air 98.3 Lab Results Laboratory Tests Test 01/10/19 13:05 01/10/19 13:39 01/10/19 17:01 01/10/19 21:16 White Blood Count 5.7 x10^3/uL (4.0-11.0) Red Blood Count 4.11 x10^6/uL (3.50-5.40) Hemoglobin 12.1 g/dL (12.0-15.5) Hematocrit 36.0 % (36.0-47.0) Mean Corpuscular Volume 88 fL (79-100) Mean Corpuscular Hemoglobin 29 pg (25-35) Mean Corpuscular Hemoglobin Concent 34 g/dL (31-37) Red Cell Distribution Width 12.9 % (11.5-14.5) Platelet Count 304 x10^3/uL (140-400) Neutrophils (%) (Auto) 46 % (31-73) Lymphocytes (%) (Auto) 44 % (24-48) Monocytes (%) (Auto) 7 % (0-9) Eosinophils (%) (Auto) 2 % (0-3) Basophils (%) (Auto) 2 % (0-3) Neutrophils # (Auto) 2.6 x10^3uL (1.8-7.7) Lymphocytes # (Auto) 2.5 x10^3/uL (1.0-4.8) Monocytes # (Auto) 0.4 x10^3/uL (0.0-1.1) Eosinophils # (Auto) 0.1 x10^3/uL (0.0-0.7) Basophils # (Auto) 0.1 x10^3/uL (0.0-0.2) Prothrombin Time 12.3 SEC (11.7-14.0) Prothromb Time International Ratio 0.9 (0.8-1.1) Sodium Level 138 mmol/L (136-145) Potassium Level 3.9 mmol/L (3.5-5.1) Chloride Level 101 mmol/L (98-107) Carbon Dioxide Level 30 mmol/L (21-32) Anion Gap 7 (6-14) Blood Urea Nitrogen 14 mg/dL (7-20) Creatinine 0.7 mg/dL (0.6-1.0) Estimated GFR (Cockcroft-Gault) 110.0 BUN/Creatinine Ratio 20 (6-20) Glucose Level 299 mg/dL (70-99) Calcium Level 10.0 mg/dL (8.5-10.1) Magnesium Level 1.7 mg/dL (1.8-2.4) Total Bilirubin 0.3 mg/dL (0.2-1.0) Aspartate Amino Transf (AST/SGOT) 11 U/L (15-37) Alanine Aminotransferase (ALT/SGPT) 13 U/L (14-59) Alkaline Phosphatase 63 U/L (46-116) Creatine Kinase 125 U/L (26-192) Troponin I Quantitative < 0.017 ng/mL (0.000-0.055) ZD-Ire-C-Type Natriuretic Peptide 119 pg/mL (0-124) Total Protein 8.2 g/dL (6.4-8.2) Albumin 3.8 g/dL (3.4-5.0) Albumin/Globulin Ratio 0.9 (1.0-1.7) Lipase 158 U/L (73-393) Thyroid Stimulating Hormone (TSH) 0.993 uIU/mL (0.358-3.74) Bedside Urine HCG, Qualitative Hcg negative (Negative) Glucose (Fingerstick) 225 mg/dL (70-99) 306 mg/dL (70-99) Test 01/11/19 04:15 01/11/19 08:10 Sodium Level 140 mmol/L (136-145) Potassium Level 3.9 mmol/L (3.5-5.1) Chloride Level 104 mmol/L (98-107) Carbon Dioxide Level 27 mmol/L (21-32) Anion Gap 9 (6-14) Blood Urea Nitrogen 10 mg/dL (7-20) Creatinine 0.6 mg/dL (0.6-1.0) Estimated GFR (Cockcroft-Gault) 131.4 Glucose Level 239 mg/dL (70-99) Calcium Level 8.9 mg/dL (8.5-10.1) Triglycerides Level 45 mg/dL (0-150) Cholesterol Level 154 mg/dL (0-200) LDL Cholesterol, Calculated 85 mg/dL (0-100) VLDL Cholesterol, Calculated 9 mg/dL (0-40) Non-HDL Cholesterol Calculated 94 mg/dL (0-129) HDL Cholesterol 60 mg/dL (40-60) Cholesterol/HDL Ratio 2.6 Glucose (Fingerstick) 208 mg/dL (70-99) Laboratory Tests Test 01/10/19 13:05 01/10/19 13:39 01/10/19 17:01 01/10/19 21:16 White Blood Count 5.7 x10^3/uL (4.0-11.0) Red Blood Count 4.11 x10^6/uL (3.50-5.40) Hemoglobin 12.1 g/dL (12.0-15.5) Hematocrit 36.0 % (36.0-47.0) Mean Corpuscular Volume 88 fL (79-100) Mean Corpuscular Hemoglobin 29 pg (25-35) Mean Corpuscular Hemoglobin Concent 34 g/dL (31-37) Red Cell Distribution Width 12.9 % (11.5-14.5) Platelet Count 304 x10^3/uL (140-400) Neutrophils (%) (Auto) 46 % (31-73) Lymphocytes (%) (Auto) 44 % (24-48) Monocytes (%) (Auto) 7 % (0-9) Eosinophils (%) (Auto) 2 % (0-3) Basophils (%) (Auto) 2 % (0-3) Neutrophils # (Auto) 2.6 x10^3uL (1.8-7.7) Lymphocytes # (Auto) 2.5 x10^3/uL (1.0-4.8) Monocytes # (Auto) 0.4 x10^3/uL (0.0-1.1) Eosinophils # (Auto) 0.1 x10^3/uL (0.0-0.7) Basophils # (Auto) 0.1 x10^3/uL (0.0-0.2) Prothrombin Time 12.3 SEC (11.7-14.0) Prothromb Time International Ratio 0.9 (0.8-1.1) Sodium Level 138 mmol/L (136-145) Potassium Level 3.9 mmol/L (3.5-5.1) Chloride Level 101 mmol/L (98-107) Carbon Dioxide Level 30 mmol/L (21-32) Anion Gap 7 (6-14) Blood Urea Nitrogen 14 mg/dL (7-20) Creatinine 0.7 mg/dL (0.6-1.0) Estimated GFR (Cockcroft-Gault) 110.0 BUN/Creatinine Ratio 20 (6-20) Glucose Level 299 mg/dL (70-99) Calcium Level 10.0 mg/dL (8.5-10.1) Magnesium Level 1.7 mg/dL (1.8-2.4) Total Bilirubin 0.3 mg/dL (0.2-1.0) Aspartate Amino Transf (AST/SGOT) 11 U/L (15-37) Alanine Aminotransferase (ALT/SGPT) 13 U/L (14-59) Alkaline Phosphatase 63 U/L (46-116) Creatine Kinase 125 U/L (26-192) Troponin I Quantitative < 0.017 ng/mL (0.000-0.055) VL-Cel-W-Type Natriuretic Peptide 119 pg/mL (0-124) Total Protein 8.2 g/dL (6.4-8.2) Albumin 3.8 g/dL (3.4-5.0) Albumin/Globulin Ratio 0.9 (1.0-1.7) Lipase 158 U/L (73-393) Thyroid Stimulating Hormone (TSH) 0.993 uIU/mL (0.358-3.74) Bedside Urine HCG, Qualitative Hcg negative (Negative) Glucose (Fingerstick) 225 mg/dL (70-99) 306 mg/dL (70-99) Test 01/11/19 04:15 01/11/19 08:10 Sodium Level 140 mmol/L (136-145) Potassium Level 3.9 mmol/L (3.5-5.1) Chloride Level 104 mmol/L (98-107) Carbon Dioxide Level 27 mmol/L (21-32) Anion Gap 9 (6-14) Blood Urea Nitrogen 10 mg/dL (7-20) Creatinine 0.6 mg/dL (0.6-1.0) Estimated GFR (Cockcroft-Gault) 131.4 Glucose Level 239 mg/dL (70-99) Calcium Level 8.9 mg/dL (8.5-10.1) Triglycerides Level 45 mg/dL (0-150) Cholesterol Level 154 mg/dL (0-200) LDL Cholesterol, Calculated 85 mg/dL (0-100) VLDL Cholesterol, Calculated 9 mg/dL (0-40) Non-HDL Cholesterol Calculated 94 mg/dL (0-129) HDL Cholesterol 60 mg/dL (40-60) Cholesterol/HDL Ratio 2.6 Glucose (Fingerstick) 208 mg/dL (70-99) Brief Hospital Course Ms Rhodes is a 43-year-old F w/ PMHx atrial flutter, hypertension and diabetes mellitus presented to ED with elevation of blood pressure and intermittent episodes of chest pain. She was at work at [employer] when she experienced some chest tightness on the left side of her chest, so came to the ED. Notes pain 3/10, non -radiating, no nausea or vomiting. Patient had blood pressure of 229/126 at arrival to ER and heart rate of 92 and treated with labetalol with increasing blood pressure to 237/120 with resolving chest pain. She stopped taking metoprolol, losartan, asa, and metformin 1 month ago because she forgot to refill. Patient had blood sugar of 299 with unremarkable cardiac enzymes and BNP. No abnormalities on EKG or cardiac enzymes. BP normalized over the course of 2 days with reinitiation of metoprolol and losartan, added ASA, statin for LDL > 70mg/dL and diabetic testing supplies. She is resistant to insulin use, given scripts for metformin and jardiance. A/P: Chest pain - atypical, likely 2/2 HTN urgency, will trend troponins. BP management. Needs outpatient stress testing. She does not wish for significant cardiac w/u. understands she stopped taking meds 30 days ago. HTN urgency - Came down with 1 dose labetalol, likely in some BB withdrawal. will restart her home metoprolol and losartan DM2 - restart metformin 500mg BID, sliding scale in addition. will add GLP1 and SGLT2, check A1c and lipids Hypomagnesemia - replace 2g Atrial flutter - currently sinus, will cont BB and asa for low [id number] of 1 FEN - ADA diet PPX - SCDs FULL CODE Inpatient for HTN urgency Discharge Information Condition at Discharge: Improved Follow Up: Weeks (1) Disposition/Orders: D/C to Home Scheduled Aspirin (Aspirin Ec) 81 Mg Tablet.dr, 81 MG PO DAILYWBKFT for DM2 for 30 Days, #30 Ref 3 Prescribed by: VALERIE LEONARD MD on 01/11/19 1120 Atorvastatin Calcium (Atorvastatin Calcium) 20 Mg Tablet, 20 MG PO QHS for DM2 for 30 Days, #30 Ref 3 Prescribed by: VALERIE LEONARD MD on 01/11/19 1120 Empagliflozin (Jardiance) 10 Mg Tablet, 10 MG PO DAILY for Dm2 for 30 Days, #30 Ref 3 Prescribed by: VALERIE LEONARD MD on 01/11/19 1120 Losartan Potassium (Cozaar ) 50 Mg Tablet, 50 MG PO DAILY for HTN/DM2 for 30 Days, #30 Ref 3 Prescribed by: VALERIE LEONARD MD on 01/11/19 1120 Metformin Hcl (Glucophage) 500 Mg Tablet, 500 MG PO BIDWMEALS for DM2 for 30 Days, #60 Ref 3 Prescribed by: VLAERIE LEONARD MD on 01/11/19 1120 Metoprolol Tartrate (Metoprolol Tartrate) 25 Mg Tablet, 25 MG PO BID for Atrial arrhythmia for 30 Days, #60 Ref 3 Prescribed by: VALERIE LEONARD MD on 01/11/19 1120 VALERIE LEONARD MD Jan 11, 2019 11:26
--- NOTE | 2019-01-11 14:01 | NUR ---
Discharge instructions reviewed with patient. Patient verbalizes understanding, prescriptions and follow ups given.
[2019-01-13 16:11] LABS: HEMOGLOBIN A1C 11.7 % (4.8-5.6)
== END 2019-01-11 13:45 | disposition home or self-care (01) | DRG 305 ==
LOC: ER 12:46 → 2 NORTH 13:58
PROVIDERS: ADMIT Internal Medicine; ATTEND Internal Medicine
DX: I16.0 Hypertensive urgency (principal); I48.92 Unspecified atrial flutter; I10 Essential (primary) hypertension; E11.65 Type 2 diabetes mellitus with hyperglycemia; E83.42 Hypomagnesemia; Z98.891 History of uterine scar from previous surgery; Z88.8 Allergy status to other drugs, medicaments and biological substances; Z91.19 Patient's noncompliance with other medical treatment and regimen; Z82.49 Family history of ischemic heart disease and other diseases of the circulatory system; Z83.3 Family history of diabetes mellitus; Z79.84 Long term (current) use of oral hypoglycemic drugs
CPT/HCPCS: 36415; 71045; 80048; 80053; 80061; 81025; 82550; 82962; 83036; 83690; 83735; 83880; 84443; 84484; 85025; 85610; 93005; 96374; 96376; J1815; J3475; J3490; 99285-25